=== PATIENT | male | born 1975 | race African-American/Black ===

== ENCOUNTER 2021-07-13 13:52 | Emergency (ER) | payer SELFPAY ==
[2021-07-13 13:58] VITALS: BP 164/96; PULSE 76; RESP 20; TEMP 36.9; O2SAT 100
--- NOTE | 2021-07-13 14:12 | ED.DENTAL ---
HPI - Dental/Oral General Chief complaint: Dental/Oral Stated complaint: tooth pain Time Seen by Provider: 07/13/21 14:12 Source: patient and RN notes reviewed Mode of arrival: ambulatory Limitations: no limitations History of Present Illness HPI Narrative: 45 year old male presents to [facility] care with complaints of dental pain to the left upper tooth #12 and also to the bottommost posterior left molar after eating lunch today, patient states that he ate some rough meat today and he has a hole in the upper molar and feel like something in it. Patient has noted decay to that #12 tooth and also to the left posterior lower molar. Patient has no difficulty with swallowing or any trouble breathing, no facial edema noted. MD Complaint: tooth pain Location: Tooth # (#12) Onset (ago): hour(s) (2) Duration: constant Severity: severe Severity scale (1-10): 8 Relieving factors: NSAIDs Exacerbating factors: chewing Context: history of dental caries Associated symptoms: gum swelling Treatment prior to arrival: topical analgesic and oral analgesic Related Data Home Medications Medication Instructions Recorded Confirmed No Home Medications 07/13/21 07/13/21 Allergies Allergy/AdvReac Type Severity Reaction Status Date / Time No Known Allergies Allergy Verified 07/13/21 14:22 Review of Systems Review of Systems: CONSTITUTIONAL: Denies fever, chills, or sweats. EYES: Denies visual changes, redness, or discharge. ENT: Denies rhinorrhea, congestion, sore throat, or otalgia.positive for dental pain CARDIOVASCULAR: Denies chest pain, palpitations, or edema. RESPIRATORY: Denies cough or dyspnea. GASTROINTESTINAL: Denies abdominal pain, nausea, vomiting, or diarrhea. GENITOURINARY: Denies dysuria or hematuria. SKIN: Denies rash or itching. MUSCULOSKELETAL: Denies back pain, joint pain, or myalgia. NEUROLOGIC: Denies headache, numbness, or weakness. PSYCHIATRIC: Denies anxiety or depression. All systems reviewed & are unremarkable except as noted in HPI and below PMFSH Past Medical History Medical History (Updated 07/14/21 @ 16:04 by Judy Field NP) No pertinent past medical history Surgical History Surgical History (Updated 07/14/21 @ 16:04 by Judy Field NP) No history of previous surgery Family History Family History (Updated 07/14/21 @ 16:05 by Judy Field NP) Mother Hypertension Grandparent Diabetes mellitus Social History Social History (Updated 07/14/21 @ 16:05 by Judy Field NP) Smoking status: Never smoker Alcohol intake: never Substance use: never Living arrangements: with roommate(s) Gender identity (if verbalized by the patient): Male Comments At time of signature, agree with nursing past medical, surgical, social and family history. There is no relevant family history pertinent to the presenting complaint Exam Narrative: GENERAL: Well-appearing, well-nourished, and in no acute distress. HEAD: Normocephalic, atraumatic. EYES: PERRLA and EOMI. ENT: Nares clear, no rhinorrhea or epistaxis. Mucous membranes moist.TM's normal with good light reflex, throat pink with no lesions or exudates, no tonsil swelling.#12 tooth has noted gum swelling with decay in center of tooth and also decay and swelling around #17 tooth, no trismus noted or any Samm angina. NECK: Supple.no lymphadenopathy CHEST: Clear to auscultation. No respiratory distress.SAO2 100% on room air HEART: Regular rate and rhythm. No murmur heard. Normal peripheral pulses. ABDOMEN: Soft, nontender, nondistended, normal active bowel sounds. EXTREMITIES: Normal range of motion. No edema. SKIN: Warm, dry, no rash. NEURO: No focal deficits. Alert and oriented x3. Course Course Level of Care: Express Care Visit Vital Signs Vital signs: Vital Signs Temperature 36.9 C 07/13/21 13:58 Pulse Rate 76 07/13/21 13:58 Respiratory Rate 20 07/13/21 13:58 Blood Pressure 164/96 H 07/13/21 13:58 Pulse Ox
== END 2021-07-13 14:25 | disposition home or self-care (01) ==
PROVIDERS: Emergency Provider Registered Nurse
DX: K04.7 Periapical abscess without sinus (principal)
CPT/HCPCS: 99213; G0463